=== PATIENT | female | born 1995 | race Caucasian/White ===

== ENCOUNTER 2016-11-15 08:39 | Emergency (ER) | payer BC ==
[2016-11-15 08:58] VITALS: BP 125/78
--- NOTE | 2016-11-15 09:29 | UC ---
Hand/Wrist HPI - HPI Summary HPI Summary: 21 female presents with complaints of left wrist pain that began on 11/13 after twisting and pulling on her wrist due to pain. Patient states she broke that wrist when she was 11 and thinks she has intermittent achey pain due to arthritis. She was attempting to make the pain go away by applying manual traction and twisting however this made the pain worse. She thinks she may have sprained it by pulling/twising it. She tried taking tylenol yesterday and 200mg ibuprofen this morning around 6am with little relief. Denies bruising, swelling , redness and obvious deformity. Is able to move it however certain movement causes sharp shooting pain. Points to worse pain on radial side of wrist that sometimes radiates into thumb. Denies numbness/tingling and anesthesia. She noticed the pain was worse when she was trying to button her pants this morning. - History Of Current Complaint Chief Complaint: UCUpperExtremity Stated Complaint: LEFT WRIST PAIN Time Seen by Provider: 11/15/16 09:17 Hx Obtained From: Patient Hx Last Menstrual Period: 08/2015 ?: No Mechanism Of Injury: manual traction and twisting Onset/Duration: Sudden Onset, Lasting Days, Worse Since Severity Initially: Mild Severity Currently: Moderate Pain Intensity: 7 Pain Scale Used: 0-10 Numeric Character Of Pain: Sharp, Aching Aggravating Factor(s): Movement, Internal/External Rotation, Twisting, Pulling Alleviating: Rest, OTC Meds Associated Signs And Symptoms: Positive: Negative Related History: Dominant Hand Right - Allergies/Home Medications Allergies/Adverse Reactions: Allergies Allergy/AdvReac Type Severity Reaction Status Date / Time Adhesive Tape Allergy Intermediate hives / Verified 11/15/16 08:58 rash Cefprozil [From Cefzil] Allergy Intermediate Hives Verified 11/15/16 08:58 Latex Allergy Intermediate Hives Verified 11/15/16 08:58 Bee Venom Allergy Swelling Verified 11/15/16 08:59 Home Medications: Home Medications Norethindrone (Contraceptive) [Jolivette] 0.35 mg PO QPM 11/15/16 [History Confirmed 11/15/16] PMH/Surg Hx/FS Hx/Imm Hx Endocrine History Of: Denies: Diabetes Cardiovascular History Of: Denies: Cardiac Disorders Respiratory History Of: Denies: Asthma - Surgical History Surgical History: Yes Surgery Procedure, Year, and Place: T & A - Family History Known Family History: Positive: None - Social History Alcohol Use: None Substance Use Type: None Smoking Status (MU): Never Smoked Tobacco Type: Cigarettes - Immunization History Most Recent Tetanus Shot: 2011 Review of Systems Constitutional: Negative Skin: Negative Respiratory: Negative Cardiovascular: Negative Gastrointestinal: Negative Motor: Decreased ROM Neurovascular: Negative Musculoskeletal: Arthralgia, Myalgia - left wrist Neurological: Negative Psychological: Negative All Other Systems Reviewed And Are Negative: Yes Physical Exam Triage Information Reviewed: Yes Appearance: Well-Appearing, No Pain Distress, Well-Nourished Vital Signs: Initial Vital Signs Temp 98.8 F 11/15/16 08:51 Pulse 71 11/15/16 08:51 Resp 20 11/15/16 08:51 BP 125/78 11/15/16 08:51 Vital Signs Reviewed: Yes Eyes: Positive: Conjunctiva Clear ENT: Positive: Normal ENT inspection, Hearing grossly normal Dental Exam: Normal Neck: Positive: Supple, Nontender Respiratory: Positive: Chest non-tender, Lungs clear, Normal breath sounds, No respiratory distress, No accessory muscle use Cardiovascular: Positive: RRR, No Murmur, Pulses Normal - 2+ radial bilateral, Brisk Capillary Refill - <2 seconds Abdominal Exam: Normal Musculoskeletal: Positive: Strength Intact - elicits pain left wrist 4/5 compared to right 4/5 due to pain, ROM Intact - elicits pain, No Edema, Other: - no obvious deformity noted, no ecchymosis, erythema, hematoma, crepitus or step off Neurological Exam: Normal - sensation intact Neurological: Positive: Alert Psychological Exam: Normal Skin Exam: Normal Skin: Positive: Other - skin intact Hand/Wrist Course/Dx - Course Course Of Treatment: patient stated she wanted to take ibuprofen at home. recommended 400-600mg every 4-6 hours for the next 3-5 days. splint, rest, ice and heat. aware of worsening signs and symptoms. follow up. avoid aggravating activity. - Differential Dx/Diagnosis Differential Diagnosis/HQI/PQRI: Contusion, Dislocation, Sprain, Strain, Other - arthritis Provider Diagnoses: left wrist sprain Discharge - Discharge Plan Condition: Stable Disposition: HOME Patient Education Materials: Wrist Sprain (ED) Referrals: Brianna Baig NP [Primary Care Provider] - Additional Instructions: Take 2-3 ibuprofen tablets every 4-6 hours for the next 3-5 days for pain and inflammation. You may take it after that only as needed. Take with food to avoid upset stomach. Rest your wrist. Do not participate in activities that make the pain worse. Wear splint throughout day with increased activity/movement. Take it off at night and a few times throughout day to move it using pain as your guide to avoid stiffness. Ice 20 minutes on and 20 minutes off and then heat- Alternating to help with inflammation and to allow loosening of the muscles. Watch for worsening signs and symptoms such as swelling, bruising, increasing pain and numbness/tingling. If these occur seek medical attention promptly. If pain persists recommend follow up with pcp.
== END 2016-11-15 09:45 | disposition home or self-care (01) ==
LOC: UCCORT 08:39
DX: S63.502A Unspecified sprain of left wrist, initial encounter (principal); X50.1XXA Overexertion from prolonged static or awkward postures, initial encounter; Y93.9 Activity, unspecified; Y92.9 Unspecified place or not applicable; Z87.81 Personal history of (healed) traumatic fracture; Z88.1 Allergy status to other antibiotic agents
CPT/HCPCS: 99212; G0463